=== PATIENT | male | born 2000 | race Caucasian/White ===

== ENCOUNTER 2019-11-03 15:36 | Emergency (ER) | payer BC ==
--- OUTSIDE RECORDS SUMMARY | 2019-11-03 15:47 | XMS REPORT | Continuity of Care Document ---
:2000 External Reference #:[id number] Author Name Kaelyn Bergman FNP (transmitted by agent of provider Tanja Lopez) Address [address] [place] [id number] Care Team Providers Name Role Phone Brijesh Castillo MD - General Care Team Information Power Operator [phone] Practice Problems Active Problems Provider Date Closed fracture distal humerus, lateral Josiah Hargrove DO Onset: 12/17 epicondyle Elbow joint effusion Lashell Reyes PA Onset: 06/18/2019 Social History Type Date Description Comments Sex Unknown Tobacco Use Start: Unknown Never Smoked Cigarettes ETOH Use Denies alcohol use Recreational Drug Use Denies Drug Use Tobacco Use Start: Unknown Patient denies history of smoking Smoking Status Reviewed: 09/18/19 Patient denies history of smoking Enjoy Exercising Patient enjoys exercising Allergies, Adverse Reactions, Alerts Active Allergies Reaction Severity Comments Date No Known Drug Allergy 11/23/2010 Medications Active Medications SIG Qnty Indications Ordering Provider Date Amoxicillin 1 tabs twice a 14tabs J02.9 Pacheco, 09/18/2019 875mg day x 7 days RINA Brothers Tablets Multi-Vitamin 1 po qd Unknown Tablets Zyrtec Allergy Unknown 10mg Capsules Remicade every 6 weeks Unknown 100mg Solution Rec Immunizations Description No Information Available Vital Signs Date Vital Result Comment 09/18/2019 3:02pm BP Systolic 106 mmHg BP Diastolic 62 mmHg Body Temperature 97.6 F Heart Rate 83 /min Respiratory Rate 18 /min Weight 149.00 lb Pain Level 0 O2 % BldC Oximetry 98 % 07/02/2019 1:37pm BP Systolic 102 mmHg BP Diastolic 68 mmHg Body Temperature 97.6 F Heart Rate 74 /min Height 66 inches 5'6" Weight 146.00 lb BMI (Body Mass Index) 23.6 kg/m2 BSA (Body Surface Area) 1.75 m2 [place] body weight in kilograms 64 kg O2 % BldC Oximetry 99 % Results Test Acquired Date Facility Test Result H/L Range Note Laboratory test 09/18/2019 [facility] neg Pos, Neg, finding A Strep Invalid Procedures Description No Information Available Medical Devices Description No Information Available Encounters Type Date Location Provider Dx Diagnosis Office Visit 09/18/2019 [facility] Avinash Bergman.Fredi Acute pharyngitis, 3:00p DELFIN BrothersP unspecified D84.9 Immunodeficiency, unspecified K50.118 Crohn's disease of large intestine with other complication Office Visit 07/02/2019 1:45p Orthopaedic Lashell Reyes, S42.454A Nondisp fx of Office PA lateral condyle of right humerus, init Office Visit 06/18/2019 11:15a Orthopaedic Lashell Reyes, M25.521 Pain in right Office PA elbow M25.421 Effusion, right elbow W19.xxxA Unspecified fall, initial encounter Assessments Date Code Description Provider 09/18/2019 J02.Fredi Acute pharyngitis, unspecified Kaelyn Bergman FNP 09/18/2019 D84.9 Immunodeficiency, unspecified Kaelyn Bergman, FLOORLEADER 09/18/2019 K50.118 Crohn's disease of large intestine Kaelyn Bergman FNP with other complication 07/02/2019 S42.454A Nondisplaced fracture of lateral Lashell Reyes PA condyle of right humerus, initial encounter for closed fracture 06/18/2019 M25.521 Pain in right elbow Lashell Reyes PA 06/18/2019 M25.421 Effusion, right elbow Lashell Reyes PA 06/18/2019 W19.xxxA Unspecified fall, initial Lashell Reyes PA encounter Plan of Treatment 09/18/2019 - Kaelyn Bergman FNPJ02.9 Acute pharyngitis, unspecifiedNew Medication:Amoxicillin 875 mg - 1 tabs twice a day x 7 daysComments:Warm saltwater gargles, Get lots of rest. Maintain good clear fluid intake to stay well hydrated. Frequent handwashing to prevent spread of germs. Please avoid exposure to tobacco smoke and/or polluted air. Please follow-up with your primary care provider within 1 week for recheck, if you GI specialist thinks this is Crohn's related he should evaluate. Please discuss with your PCPD84.9 Immunodeficiency, [id number] Crohn's disease of large intestine with other complicationComments:Schedule an appointment to see your PCP in the next week Functional Status Description No Information Available Mental Status Description No Information Available Referrals Description No Information Available
[2019-11-03 16:11] VITALS: BP 105/49
[2019-11-03 16:55] LABS: Influenza A Molecular Negative (Negative); Influenza B Molecular Negative (Negative)
--- NOTE | 2019-11-03 17:01 | UC ---
FLU HPI - HPI Summary HPI Summary: 19-year-old male comes in with 3 day history of headache fevers chills body aches and rhinorrhea. Patient is on immunosuppressive medication for Crohn's disease. He does have some chest congestion no complaint of any shortness of breath. He did take some ibuprofen he does not feel like it helped. States his sore throat is minimal. - History of Current Complaint Chief Complaint: UCGeneralIllness Stated Complaint: FEVER/SINUS/HEADACHE/COUGH Time Seen by Provider: 11/03/19 16:33 Pain Intensity: 2 - Allergy/Home Medications Allergies/Adverse Reactions: Allergies Allergy/AdvReac Type Severity Reaction Status Date / Time No Known Allergies Allergy Verified 11/03/19 16:10 Home Medications: Home Medications inFLIXimab-DYYB [Inflectra*] 100 mg IV SEE INSTRUCTIONS 11/03/19 [History Confirmed 11/03/19] PMH/Surg Hx/FS Hx/Imm Hx Previously Healthy: Yes - Crohn's disease - Surgical History Surgical History: Yes Surgery Procedure, Year, and Place: Nov 2015-bowel resection - Family History Known Family History: Positive: Non-Contributory - Social History Alcohol Use: Rare Substance Use Type: None Smoking Status (MU): Current Some Day Smoker Type: Cigarettes Review of Systems All Other Systems Reviewed And Are Negative: Yes Constitutional: Positive: Fever, Chills, Other - SEE HPI Skin: Positive: Negative Eyes: Positive: Negative ENT: Positive: Nasal Discharge, Sinus Congestion Respiratory: Positive: Negative Cardiovascular: Positive: Negative Gastrointestinal: Positive: Negative Motor: Positive: Negative Neurovascular: Positive: Negative Musculoskeletal: Positive: Myalgia Neurological: Positive: Headache Psychological: Positive: Negative Is Patient Immunocompromised?: No Physical Exam Triage Information Reviewed: Yes Appearance: No Pain Distress, Well-Nourished, Ill-Appearing - MILD Vital Signs: Initial Vital Signs Temp 100.7 F 11/03/19 16:04 Pulse 96 11/03/19 16:04 Resp 17 11/03/19 16:04 BP 105/49 11/03/19 16:04 Pulse Ox 100 11/03/19 16:04 Vital Signs Reviewed: Yes Eye Exam: Normal Eyes: Positive: Conjunctiva Clear ENT: Positive: Pharynx normal, Nasal congestion, Nasal drainage, TMs normal Neck: Positive: Supple Respiratory: Positive: Lungs clear, Normal breath sounds, No respiratory distress Cardiovascular: Positive: RRR Musculoskeletal: Positive: Strength Intact, ROM Intact Neurological: Positive: Alert, Muscle Tone Normal Psychological: Positive: Age Appropriate Behavior Skin Exam: Normal Flu Course/Dx - Course Course Of Treatment: DISCUSSED VIRAL VERSES BACTERIAL INFECTIONS AND THE ROLE OF ANTIBIOTICS. THE PATIENT PREFERS TO BE ON ANTIBIOTICS AT THIS TIME. The patient is potentially immunocompromised due to his medications for Crohn's disease. Patient reports that he's been able take amoxicillin the past without upsetting his stomach. Follow-up his primary care doctor if not completely improved. If the patient gets worse he is to get reevaluated in the emergency department. - Differential Dx/Diagnosis Provider Diagnosis: Sinusitis Discharge ED - Sign-Out/Discharge Documenting (check all that apply): Patient Departure All imaging exams completed and their final reports reviewed: No Studies - Discharge Plan Condition: Stable Disposition: HOME Prescriptions: Amoxicillin PO (*) [Amoxicillin 875 MG (*)] 875 mg PO BID #20 tab Patient Education Materials: Sinusitis (ED) Referrals: [facility] [Outside] [facility] [Outside] Additional Instructions: FOLLOW UP WITH YOUR DOCTOR IF NOT COMPLETELY IMPROVED. GO TO THE EMERGENCY DEPARTMENT IF WORSE OR ANY QUESTIONS OR CONCERNS. - Billing Disposition and Condition Condition: STABLE Disposition: Home
== END 2019-11-03 17:05 | disposition home or self-care (01) ==
LOC: UCCORT 15:36
DX: J32.9 Chronic sinusitis, unspecified (principal); M79.10 Myalgia, unspecified site; F17.210 Nicotine dependence, cigarettes, uncomplicated
CPT/HCPCS: 99202; G0463